=== PATIENT | female | born 1975 | race Caucasian/White ===

== ENCOUNTER → 2016-07-30 | Outpatient (REF) | payer OTHER | LOC: M SFHCCAPE 11:56 | PROVIDERS: ATTEND Physician Assistant | DX: J01.90 Acute sinusitis, unspecified (principal) ==

== ENCOUNTER → 2016-08-27 | Outpatient (REF) | payer OTHER ==
[2016-08-27 18:53] LABS: VITAMIN B12 LEVEL 714 PG/ML (247-911)
[2016-08-27 18:55] LABS: ALBUMIN 3.8 GM/DL (3.2-5.2); ALBUMIN/GLOBULIN RATIO 1.15 (1.00-1.93); ALKALINE PHOSPHATASE 55 U/L (45-117); ALT/SGPT 21 U/L (12-78); ANION GAP 8 MEQ/L (8-16); AST/SGOT 16 U/L (15-37); BILIRUBIN,TOTAL 0.7 MG/DL (0.2-1.0); BLOOD UREA NITROGEN 13 MG/DL (7-18); CALCIUM LEVEL 8.6 MG/DL (8.5-10.1); CARBON DIOXIDE LEVEL 30 MEQ/L (21-32); CHLORIDE LEVEL 104 MEQ/L (98-107); CREATININE FOR GFR 0.66 MG/DL (0.55-1.02); FREE T4 1.06 NG/DL (0.76-1.46); GLOMERULAR FILTRATION RATE > 60.0 (>60); GLUCOSE, FASTING 58 MG/DL (70-105); POTASSIUM SERUM 3.7 MEQ/L (3.5-5.1); SODIUM LEVEL 142 MEQ/L (136-145); TOTAL PROTEIN 7.1 GM/DL (6.4-8.2)
[2016-08-27 19:44] LABS: BASO % 0.8 % (0.0-1.0); EOS # 0.2 K/mm3 (0.0-0.50); EOS % 4.4 % (0.0-3.0); LARGE UNSTAINED CELL # 0.1 K/mm3 (0.0-0.4); LARGE UNSTAINED CELL % 1.7 % (0.0-4.0); LYMPH # 1.4 K/mm3 (1.5-4.5); LYMPH % 27.9 % (24.0-44.0); MEAN CORPUSCULAR HEMOGLOBIN 30.3 pg (27.0-33.0); MEAN CORPUSCULAR HGB CONC 33.7 g/dl (32.0-36.5); MEAN CORPUSCULAR VOLUME 89.7 fl (80.0-96.0); MONO # 0.4 K/mm3 (0.0-0.8); MONO % 8.9 % (0.0-5.0); NEUTROPHILS # 2.6 K/mm3 (1.8-7.7); NEUTROPHILS % 56.3 % (36.0-66.0); PLATELET COUNT, AUTOMATED 186 k/mm3 (150-450); RED CELL DISTRIBUTION WIDTH 12.9 % (11.5-14.5); WHITE BLOOD COUNT 4.6 K/mm3 (4.0-10.0)
[2016-08-27 21:41] LABS: ERYTHROCYTE SEDIMENTATION RATE 8 mm/hr (0-20)
[2016-08-30 00:08] LABS: Lyme Disease IgG/IgM Antibodie <0.91 ISR (0.00-0.90); Lyme Disease IgM Ab Quantitati <0.80 index (0.00-0.79)
== END ==
LOC: M SFHCCAPE 13:20
PROVIDERS: ATTEND Physician Assistant
DX: M25.50 Pain in unspecified joint (principal)

== ENCOUNTER → 2019-06-04 | Outpatient (CLI) | payer OTHER | LOC: M LABSMTC 10:05 | PROVIDERS: ATTEND Family Medicine | DX: Z11.59 Encounter for screening for other viral diseases (principal); Z20.828 Contact with and (suspected) exposure to other viral communicable diseases ==

== ENCOUNTER → 2020-01-09 | Outpatient (CLI) | payer OTHER ==
[~2020-01-09] MED LIST: BACL10TA2 PO; BUTA-198 PO; FAMO20TA PO; HYDR200T3 PO; ONDA4TAB6 PO; SUMA6INJ16 SC; VENL150C43 PO; VENL37.598 PO; ZOLM5TAB20 PO; marijuana SL
== END ==
LOC: M LABSMTC 08:51
PROVIDERS: ATTEND Anesthesiology
DX: Z01.812 Encounter for preprocedural laboratory examination (principal); Z20.828 Contact with and (suspected) exposure to other viral communicable diseases

== ENCOUNTER → 2020-01-11 | Outpatient (REF) | payer OTHER ==
[2020-01-11 18:12] LABS: BASO # 0.1 10^3/uL (0.0-0.2); BASO % 1.1 % (0.0-1.0); EOS # 0.2 10^3/uL (0.0-0.5); EOS % 3.9 % (0.0-3.0); HEMATOCRIT 36.3 % (36.0-47.0); HEMOGLOBIN 10.8 g/dl (12.0-15.5); LYMPH # 1.1 10^3/uL (1.5-5.0); LYMPH % 20.1 % (24.0-44.0); MEAN CORPUSCULAR HEMOGLOBIN 23.3 pg (27.0-33.0); MEAN CORPUSCULAR HGB CONC 29.8 g/dl (32.0-36.5); MEAN CORPUSCULAR VOLUME 78.4 fl (80.0-96.0); MONO # 0.8 10^3/uL (0.0-0.8); MONO % 14.8 % (0.0-5.0); NEUTROPHILS # 3.2 10^3/uL (1.5-8.5); NEUTROPHILS % 59.3 % (36.0-66.0); PLATELET COUNT, AUTOMATED 254 10^3/uL (150-450); RED BLOOD COUNT 4.63 10^6/uL (4.00-5.40); WHITE BLOOD COUNT 5.3 10^3/uL (4.0-10.0)
[2020-01-11 18:51] LABS: ALBUMIN 3.7 GM/DL (3.2-5.2); ALT/SGPT 14 U/L (12-78); BILIRUBIN,TOTAL 0.5 MG/DL (0.2-1.0); BLOOD UREA NITROGEN 15 MG/DL (7-18); CALCIUM LEVEL 8.9 MG/DL (8.5-10.1); CARBON DIOXIDE LEVEL 30 MEQ/L (21-32); CHLORIDE LEVEL 106 MEQ/L (98-107); CREATININE FOR GFR 0.72 MG/DL (0.55-1.30); FREE T4 0.97 NG/DL (0.76-1.46); GLOMERULAR FILTRATION RATE > 60.0 (>58); GLUCOSE, FASTING 69 MG/DL (70-100); POTASSIUM SERUM 4.2 MEQ/L (3.5-5.1); SODIUM LEVEL 138 MEQ/L (136-145); TOTAL PROTEIN 6.8 GM/DL (6.4-8.2)
== END ==
LOC: M SFHCCLAY 09:51
PROVIDERS: ATTEND Nurse Practitioner Family
DX: M32.9 Systemic lupus erythematosus, unspecified (principal); M79.7 Fibromyalgia; R00.0 Tachycardia, unspecified; C53.9 Malignant neoplasm of cervix uteri, unspecified

== ENCOUNTER 2020-01-14 07:04 | Day surgery (SDC) | payer OTHER ==
[2020-01-14] VITALS (8 sets, daily range): BP systolic 124–155; BP diastolic 77–93
[~2020-01-14] VITALS: Ht 160 cm; Wt 80.7 kg
[~2020-01-14 07:04] MED LIST changes: +LR 1,000 ML IV ONE
[2020-01-14] MEDS ORDERED: ceFAZolin SOD 2 GM in IV 1 EA IV ONE (07:45)
[2020-01-14 07:49] LABS: HEMATOCRIT 36.6 % (36.0-47.0); HEMOGLOBIN 11.2 g/dl (12.0-15.5); MEAN CORPUSCULAR HEMOGLOBIN 23.7 pg (27.0-33.0); MEAN CORPUSCULAR HGB CONC 30.6 g/dl (32.0-36.5); MEAN CORPUSCULAR VOLUME 77.4 fl (80.0-96.0); PLATELET COUNT, AUTOMATED 271 10^3/uL (150-450); RED BLOOD COUNT 4.73 10^6/uL (4.00-5.40); WHITE BLOOD COUNT 6.8 10^3/uL (4.0-10.0)
[2020-01-14] MEDS ORDERED: MIDAZOLAM INJ 2MG/2ML VIAL (J2250 PER 1MG) As Ordered ONE (08:43)
[2020-01-14] MEDS ORDERED: ONDANSETRON 4MG/2ML VIAL As Ordered ONE (08:44)
[2020-01-14] MEDS ORDERED: fentaNYL 100 MCG/2 ML INJECTION (J3010) As Ordered ONE (08:44)
[2020-01-14] MEDS ORDERED: LIDOCAINE 2% 100MG/5ML SDV (FOR ANES.) As Ordered ONE (08:44)
[2020-01-14] MEDS ORDERED: dexameTHASONE 4 MG/ML 1ML VIAL (J1100 PER 1MG) As Ordered ONE (08:44)
[2020-01-14] MEDS ORDERED: ROCURONIUM BROMIDE 50 MG/5 ML VIAL As Ordered ONE ×2 (08:44→09:43)
[2020-01-14] MEDS ORDERED: propofoL 200 MG/20 ML VIAL As Ordered ONE ×2 (08:44→08:45)
[2020-01-14] MEDS: **UNRESOLVED NON-FORMULARY MED ORDER XX SCH (09:00)
[2020-01-14] MEDS: HYDROXYCHLOROQUINE 200 MG TAB PO SCH (09:00)
[2020-01-14] MEDS ORDERED: HYDROmorphone HCL 2 MG/ML 1ML VIAL (J1170) As Ordered ONE (09:38)
[2020-01-14] MEDS ORDERED: PHENYLephrine HCL 500 MCG/5 ML (100MCG/ML) SYRINGE (J2370) As Ordered ONE (09:44)
[2020-01-14] MEDS ORDERED: SUGAMMADEX SODIUM 500 MG/5 ML VIAL (BRIDION) As Ordered ONE (09:54)
[2020-01-14] MEDS ORDERED: KETOROLAC 60MG 2ML VIAL As Ordered ONE (09:55)
[2020-01-14] MEDS ORDERED: MORPHINE 1MG/ML IN 0.9% NACL 100ML IV BAG As Ordered ONE (11:42)
--- NOTE | 2020-01-14 11:44 | REP ---
INDICATION: FOR FORIEGN BODY. COMPARISON: Comparison pelvic radiograph is from December 13, 2014.. TECHNIQUE: Two portable supine views the abdomen and pelvis. FINDINGS: Bowel gas pattern is normal. No opaque foreign body is appreciated. Flank stripes are intact. No mass, organomegaly or pathologic calcification is seen. IMPRESSION: Negative portable KUB. No opaque foreign body noted. <Electronically signed by Gadiel Garner > 01/14/20 [id number]
[2020-01-14] MEDS ORDERED: PERCOCET 5MG/325MG TAB PO PRN (12:15)
[2020-01-14] MEDS ORDERED: LR 1,000 ML IV SCH (12:15)
[2020-01-14] MEDS ORDERED: fentaNYL 100 MCG/2 ML INJECTION (J3010) IV PRN (12:15)
[2020-01-14] MEDS ORDERED: ONDANSETRON 4MG/2ML VIAL IV PRN (12:15)
[2020-01-14] MEDS ORDERED: MORPHINE 1MG/ML IN 0.9% NACL 100ML IV BAG IV PRN (12:30)
[2020-01-14] MEDS ORDERED: diphenhydrAMINE 50MG/ML VIAL (J1200) IV PRN (12:30)
[2020-01-14] MEDS ORDERED: NALBUPHINE HCL 10 MG/ML AMP (J2300) IV PRN (12:30)
[2020-01-14] MEDS ORDERED: EPIDURAL/PCA KEYS XX PRN (12:30)
[2020-01-14] MEDS ORDERED: NALOXONE INJ 0.4MG/1ML VIAL (J2310 PER 1MG) IV PRN (12:30)
[2020-01-14] MEDS ORDERED: METOCLOPRAMIDE INJ 10MG/2ML VIAL (J2765 PER 1) IV PRN (12:30)
[2020-01-14] MEDS ORDERED: IBUPROFEN 600MG TAB PO PRN (12:30)
[2020-01-14] MEDS ORDERED: ALBUTEROL 90 MCG/ACT 8GM HFA INHALER INH PRN (12:45)
[2020-01-14] MEDS: LR 1,000 ML IV SCH ×2 (14:25→18:53)
--- NOTE | 2020-01-14 15:21 | RO ---
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 SURGEON: Sara Jauregui MD [employer] SUPERVISOR: None. ANESTHESIA: General endotracheal anesthesia. PROCEDURE: Laparoscopic-assisted vaginal hysterectomy with bilateral salpingo-oophorectomy. BRIEF DESCRIPTION OF PROCEDURE/FINDINGS: Marylin was brought to the operating room where sufficient general endotracheal anesthesia was induced. She was prepped, draped and positioned in usual sterile fashion with weighted speculum placed, bladder emptied and uterine manipulator placed, then weighted removed and Rangel with ability of back-fill was left in place. We then turned our attention to the abdomen. Transverse semilunar incision was made below the umbilicus. Sharp and blunt dissection were continued through subcutaneous tissues to the level of the rectus fascia with transverse incision made with scalpel and the fascia secured with #0 Vicryl retention sutures. The peritoneum then entered under direct visualization in open laparoscopic technique. The Yenifer cannula was then placed and secured with #0 Vicryl retention sutures and CO2 insufflation was then begun. After adequate CO2 insufflation the peritoneal cavity was visualized. There were normal shiny surfaces throughout, no excrescent, ascites or exudate. There are minor filmy adhesions consistent with the patient's history but no significant lesions. There is a small anterior fundal fibroid. The ovaries were normal in appearance. We were with Trendelenburg readily able to isolate the infundibulopelvics. We then used the operative port and Yenifer for a #45 Enseal to cauterize and transect the infundibulopelvics starting on the left and right, we took care to avoid injury to the bowel or the ureters. We worked our way through the mesentery to the round ligament and then into the anterior aspect of the broad ligament from above, freeing the ovary and fallopian tube and superior aspect of the uterus. When we completed this dissection we went ahead and moved to the vaginal portion of the case. Working vaginally with the uterine manipulator removed, single tooth tenacula were placed on the anterior and posterior aspects of the cervix. Circumferential incision was made around the base of the cervix and the cardinal ligaments were isolated, clamped with De Gray clamps which were used throughout this portion of the case, transected and then sutured with #0 Vicryl suture which was also used throughout this portion of the case. We then entered posteriorly, clamped, cut and ligated the uterosacrals which were secured to the cuff for later securing with the cuff closure and then dissected anteriorly to displace the bladder so that we could work our way up the lateral aspect of the uterus, carefully clamping, transecting and cutting the uterine vascular supply until we reached the level of the dissection that we had done from above and then the uterus with the attached ovaries and tubes removed. Pedicles were carefully examined, good hemostasis assured. The vaginal cuff was examined as well; there was a little oozing at the angle on the right side. We did oversew both angles and secured the uterosacrals and then closed the cuff with running locking stitch with good approximation and hemostasis achieved. We then turned our attention to closure of the umbilical wound. The Yenifer was removed. The #0 Vicryl retention sutures were used to close the fascia at the umbilicus and then the skin was closed with 3-0 Vicryl in subcuticular stitch with good approximation and hemostasis achieved in both layers. Dry, sterile dressing was then applied and procedure ended. Estimated blood loss for the procedure was about 100 mL. Fluid replacement was Crystalloid. Complications: None. I will note that they had two extra instruments at the end of the count. We do have a trainee today so of course an x-ray was done and there were no retained instruments, etc. PATIENT CONDITION AND DISPOSITION: The patient tolerated the procedure well and was recovering in the recovery room in good condition.
[2020-01-14] MEDS ORDERED: ZOLMitriptan TABLET 2.5MG PO PRN (16:45)
[2020-01-14] MEDS: ONDANSETRON 4 MG ORAL DISINTEGRATING TAB PO PRN (16:53)
[2020-01-14] MEDS: FAMOTIDINE 20 MG TAB PO SCH (21:03)
[2020-01-15] MEDS: LR 1,000 ML IV SCH (01:44)
[2020-01-15 02:00] VITALS: BP 150/87
[2020-01-15 06:00] VITALS: BP 123/78
[2020-01-15] MEDS ORDERED: NORCO, ANEXSIA 5/325MG TABLET (HYDROcodone/ACETAMINOPHEN) PO PRN (06:00)
[2020-01-15] MEDS: FAMOTIDINE 20 MG TAB PO SCH (08:11)
[2020-01-15] MEDS: ONDANSETRON 4 MG ORAL DISINTEGRATING TAB PO PRN (08:11)
[2020-01-15] MEDS: HYDROXYCHLOROQUINE 200 MG TAB PO SCH ×2 (08:11→08:14)
[2020-01-15] MEDS: **UNRESOLVED NON-FORMULARY MED ORDER XX SCH (08:12)
[2020-01-15] MEDS ORDERED: VENLAFAXINE **XR** 75MG CAPSULE PO SCH (09:00)
[2020-01-15 10:00] VITALS: BP 138/84
== END 2020-01-15 12:46 | disposition home or self-care (01) ==
LOC: M SDC 07:04 → M MSPAV 12:39 → M SDC 01-15 12:46
PROVIDERS: ATTEND Obstetrics & Gynecology
DX: D06.9 Carcinoma in situ of cervix, unspecified (principal); N94.10 Unspecified dyspareunia; N93.9 Abnormal uterine and vaginal bleeding, unspecified; M32.9 Systemic lupus erythematosus, unspecified; K21.9 Gastro-esophageal reflux disease without esophagitis; Z79.899 Other long term (current) drug therapy; G43.909 Migraine, unspecified, not intractable, without status migrainosus; Z87.891 Personal history of nicotine dependence; Z88.0 Allergy status to penicillin; Z91.018 Allergy to other foods; Z88.8 Allergy status to other drugs, medicaments and biological substances
CPT/HCPCS: 36415; 58571; 74018; 81025; 85027; 86850; 86900; 86901; 88307; 88341; 88342; 96360; 96361; J0690; J1100; J1170; J1885; J2250; J2370; J2405; J3010; Q0162

== ENCOUNTER → 2020-07-04 | Outpatient (REF) | payer OTHER ==
[~2020-07-04] MED LIST changes: -LR 1,000 ML IV ONE
[2020-07-04 17:28] LABS: BASO % 0.8 % (0.0-1.0); EOS # 0.2 10^3/uL (0.0-0.5); EOS % 4.7 % (0.0-3.0); HEMATOCRIT 41.1 % (36.0-47.0); HEMOGLOBIN 13.1 g/dl (12.0-15.5); LYMPH # 1.5 10^3/uL (1.5-5.0); LYMPH % 28.8 % (24.0-44.0); MEAN CORPUSCULAR HEMOGLOBIN 26.5 pg (27.0-33.0); MEAN CORPUSCULAR HGB CONC 31.9 g/dl (32.0-36.5); MEAN CORPUSCULAR VOLUME 83.2 fl (80.0-96.0); MONO # 0.7 10^3/uL (0.0-0.8); MONO % 14.1 % (2.0-8.0); NEUTROPHILS # 2.6 10^3/uL (1.5-8.5); NEUTROPHILS % 51.2 % (36.0-66.0); PLATELET COUNT, AUTOMATED 201 10^3/uL (150-450); RED BLOOD COUNT 4.94 10^6/uL (4.00-5.40); WHITE BLOOD COUNT 5.1 10^3/uL (4.0-10.0)
[2020-07-04 17:38] LABS: ALBUMIN 3.7 GM/DL (3.2-5.2); ALT/SGPT 18 U/L (12-78); BILIRUBIN,TOTAL 0.6 MG/DL (0.2-1.0); BLOOD UREA NITROGEN 11 MG/DL (7-18); CALCIUM LEVEL 8.9 MG/DL (8.5-10.1); CARBON DIOXIDE LEVEL 33 MEQ/L (21-32); CHLORIDE LEVEL 105 MEQ/L (98-107); CHOLESTEROL LEVEL 152 MG/DL (<200); CHOLESTEROL RISK RATIO 1.974 (<5); CREATININE FOR GFR 0.77 MG/DL (0.55-1.30); GLOMERULAR FILTRATION RATE > 60.0 (>58); GLUCOSE, FASTING 77 MG/DL (70-100); HDL CHOLESTEROL 77 MG/DL (>40); LDL CHOLESTEROL 58 MG/DL (<100); NON-HDL-C 75 MG/DL; POTASSIUM SERUM 3.8 MEQ/L (3.5-5.1); SODIUM LEVEL 142 MEQ/L (136-145); TOTAL 25(OH) VITAMIN D 35.2 NG/ML (30.0-100.0); TOTAL PROTEIN 6.9 GM/DL (6.4-8.2); TRIGLYCERIDES LEVEL 83 MG/DL (<150)
== END ==
LOC: M SFHCCAPE 07:12
PROVIDERS: ATTEND Physician Assistant
DX: M32.9 Systemic lupus erythematosus, unspecified (principal); Z13.6 Encounter for screening for cardiovascular disorders

== ENCOUNTER → 2020-07-25 | Outpatient (REF) | payer OTHER ==
[2020-07-25 19:16] LABS: FREE T4 0.92 NG/DL (0.76-1.46); THYROID STIMULATING HORMONE 4.01 uIU/ML (0.358-3.740)
== END ==
LOC: M SFHCCLAY 07:35
PROVIDERS: ATTEND Physician Assistant
DX: R79.89 Other specified abnormal findings of blood chemistry (principal)

== ENCOUNTER → 2020-08-09 | Outpatient (CLI) | payer OTHER ==
--- NOTE | 2020-08-09 11:02 | REP ---
INDICATION: ABN THYROID FUNCTION TEST, LYMPHADENOPATHY COMPARISON: None. TECHNIQUE: Bentley scale and color evaluation of the thyroid gland using the linear high frequency transducer. FINDINGS: The thyroid gland is normal in contour, shape, size, and echogenicity. Right thyroid lobe measures 4.6 x 1.7 x 1.5 cm and includes 4.4 x 5.5 x 4.5 mm hypoechoic nodule adjacent to the isthmus and 3.4 x 3.4 x 1.7 cm lower pole cyst. Isthmus measures 1.9 mm in width. Left thyroid lobe measures 4.0 x 1.2 x 1.6 cm without nodule or cyst. IMPRESSION: Small nonspecific right thyroid nodule and cyst. <Electronically signed by Mehul Tuttle > 08/09/20 [id number]
== END ==
LOC: M RAD 10:19
PROVIDERS: ATTEND Physician Assistant
DX: R94.6 Abnormal results of thyroid function studies (principal); R59.0 Localized enlarged lymph nodes

== ENCOUNTER → 2020-09-26 | Outpatient (REF) | payer OTHER ==
[2020-09-26 17:14] LABS: FREE T4 1.41 NG/DL (0.76-1.46); THYROID STIMULATING HORMONE 3.64 uIU/ML (0.358-3.740)
== END ==
LOC: M SFHCCAPE 07:46
PROVIDERS: ATTEND Physician Assistant
DX: E07.9 Disorder of thyroid, unspecified (principal)

== ENCOUNTER → 2021-05-22 | Outpatient (CLI) | payer OTHER ==
[~2021-05-22] MED LIST changes: -SUMA6INJ16 SC; +SUMA6INJ25 SC
[2021-05-22 12:45] LABS: BASO # 0.1 10^3/uL (0.0-0.2); EOS # 0.1 10^3/uL (0.0-0.5); EOS % 2.4 % (0.0-3.0); HEMOGLOBIN 14.1 g/dl (12.0-15.5); LYMPH # 1.3 10^3/uL (1.5-5.0); LYMPH % 25.7 % (24.0-44.0); MEAN CORPUSCULAR HEMOGLOBIN 29.8 pg (27.0-33.0); MEAN CORPUSCULAR HGB CONC 33.6 g/dl (32.0-36.5); MEAN CORPUSCULAR VOLUME 88.8 fl (80.0-96.0); MONO # 0.5 10^3/uL (0.0-0.8); NEUTROPHILS # 2.9 10^3/uL (1.5-8.5); NEUTROPHILS % 59.1 % (36.0-66.0); PLATELET COUNT, AUTOMATED 218 10^3/uL (150-450); RED BLOOD COUNT 4.73 10^6/uL (4.00-5.40); WHITE BLOOD COUNT 4.9 10^3/uL (4.0-10.0)
[2021-05-22 13:36] LABS: ALBUMIN 3.8 GM/DL (3.2-5.2); ALT/SGPT 21 U/L (12-78); BILIRUBIN,TOTAL 0.7 MG/DL (0.2-1.0); BLOOD UREA NITROGEN 11 MG/DL (7-18); CALCIUM LEVEL 8.9 MG/DL (8.5-10.1); CARBON DIOXIDE LEVEL 29 MEQ/L (21-32); CHLORIDE LEVEL 104 MEQ/L (98-107); CHOLESTEROL LEVEL 163 MG/DL (<200); CHOLESTEROL RISK RATIO 1.852 (<5); FREE T4 1.06 NG/DL (0.76-1.46); GLOMERULAR FILTRATION RATE > 60.0 (>58); GLUCOSE, FASTING 86 MG/DL (70-100); HDL CHOLESTEROL 88 MG/DL (>40); LDL CHOLESTEROL 63 MG/DL (<100); NON-HDL-C 75 MG/DL; POTASSIUM SERUM 3.9 MEQ/L (3.5-5.1); SODIUM LEVEL 140 MEQ/L (136-145); TOTAL PROTEIN 6.7 GM/DL (6.4-8.2); TRIGLYCERIDES LEVEL 62 MG/DL (<150)
[2021-05-22 13:59] LABS: HEPATITIS C VIRUS ABY INDEX 0.1 INDEX (<0.8); HIV 1&2 SCREEN CENTAUR NEGATIVE (NEGATIVE)
== END ==
LOC: M WUC 10:13
PROVIDERS: ATTEND Physician Assistant
DX: Z11.3 Encounter for screening for infections with a predominantly sexual mode of transmission (principal); E07.9 Disorder of thyroid, unspecified

== ENCOUNTER → 2021-09-05 | Outpatient (CLI) | payer OTHER ==
[2021-09-05 12:30] LABS: BASO # 0.1 10^3/uL (0.0-0.2); BASO % 0.8 % (0.0-1.0); EOS # 0.1 10^3/uL (0.0-0.5); EOS % 1.7 % (0.0-3.0); HEMATOCRIT 44.7 % (36.0-47.0); HEMOGLOBIN 14.8 g/dl (12.0-15.5); LYMPH # 1.3 10^3/uL (1.5-5.0); LYMPH % 20.7 % (24.0-44.0); MEAN CORPUSCULAR HEMOGLOBIN 29.7 pg (27.0-33.0); MEAN CORPUSCULAR HGB CONC 33.1 g/dl (32.0-36.5); MEAN CORPUSCULAR VOLUME 89.8 fl (80.0-96.0); MONO # 0.6 10^3/uL (0.0-0.8); MONO % 10.1 % (2.0-8.0); NEUTROPHILS % 65.7 % (36.0-66.0); PLATELET COUNT, AUTOMATED 232 10^3/uL (150-450); RED BLOOD COUNT 4.98 10^6/uL (4.00-5.40)
[2021-09-05 12:57] LABS: ERYTHROCYTE SEDIMENTATION RATE 7 mm/hr (0-20)
[2021-09-05 13:11] LABS: ALBUMIN 3.9 GM/DL (3.2-5.2); ALT/SGPT 22 U/L (12-78); BILIRUBIN,TOTAL 0.7 MG/DL (0.2-1.0); BLOOD UREA NITROGEN 15 MG/DL (7-18); CALCIUM LEVEL 9.3 MG/DL (8.5-10.1); CARBON DIOXIDE LEVEL 31 MEQ/L (21-32); CHLORIDE LEVEL 103 MEQ/L (98-107); CREATININE FOR GFR 0.79 MG/DL (0.55-1.30); GLOMERULAR FILTRATION RATE > 60.0 (>58); GLUCOSE, FASTING 128 MG/DL (70-100); POTASSIUM SERUM 3.9 MEQ/L (3.5-5.1); RHEUMATOID FACTOR QUANT < 10.0 IU/ML (<15.0); SODIUM LEVEL 137 MEQ/L (136-145); TOTAL PROTEIN 7.1 GM/DL (6.4-8.2)
[2021-09-06 11:09] LABS: ANTINUCLEAR ANTIBODIES DIRECT Negative (Negative)
== END ==
LOC: M WUC 08:52
PROVIDERS: ATTEND Psychiatry & Neurology Neurology
DX: R51.9 Headache, unspecified (principal)

== ENCOUNTER → 2021-09-05 | Outpatient (CLI) | payer OTHER ==
[2021-09-05 13:07] LABS: FREE T4 1.1 NG/DL (0.76-1.46); THYROID STIMULATING HORMONE 2.71 uIU/ML (0.358-3.740)
[2021-09-05 13:48] LABS: THYROID PEROXIDASE ANTIBODY 28.5 U/ML (<60.0)
== END ==
LOC: M WUC 08:50
PROVIDERS: ATTEND Nurse Practitioner Family
DX: E03.9 Hypothyroidism, unspecified (principal)

== ENCOUNTER 2021-09-30 19:03 | Inpatient (IN) | payer OTHER ==
[~2021-09-30] VITALS: Ht 160 cm; Wt 80.0 kg
[~2021-09-30 19:03] MED LIST changes: -ONDA4TAB6 PO; +ONDA4TAB6 SL
[2021-09-30] MEDS ORDERED: NS 1,000 ML IV ONE (19:50)
[2021-09-30 19:52] LABS: BASO # 0.1 10^3/uL (0.0-0.2); BASO % 1.1 % (0.0-1.0); EOS # 0.1 10^3/uL (0.0-0.5); EOS % 1.2 % (0.0-3.0); HEMATOCRIT 45.9 % (36.0-47.0); HEMOGLOBIN 15.3 g/dl (12.0-15.5); LYMPH # 1.3 10^3/uL (1.5-5.0); LYMPH % 20.1 % (24.0-44.0); MEAN CORPUSCULAR HEMOGLOBIN 29.8 pg (27.0-33.0); MEAN CORPUSCULAR HGB CONC 33.3 g/dl (32.0-36.5); MEAN CORPUSCULAR VOLUME 89.5 fl (80.0-96.0); MONO # 0.7 10^3/uL (0.0-0.8); MONO % 10.7 % (2.0-8.0); NEUTROPHILS # 4.3 10^3/uL (1.5-8.5); NEUTROPHILS % 65.5 % (36.0-66.0); PLATELET COUNT, AUTOMATED 223 10^3/uL (150-450); RED BLOOD COUNT 5.13 10^6/uL (4.00-5.40); WHITE BLOOD COUNT 6.6 10^3/uL (4.0-10.0)
[2021-09-30 20:40] LABS: ALBUMIN 3.9 GM/DL (3.2-5.2); ALT/SGPT 24 U/L (12-78); BILIRUBIN,DIRECT 0.1 MG/DL (0.0-0.2); BILIRUBIN,TOTAL 0.4 MG/DL (0.2-1.0); BLOOD UREA NITROGEN 12 MG/DL (7-18); CARBON DIOXIDE LEVEL 29 MEQ/L (21-32); CHLORIDE LEVEL 107 MEQ/L (98-107); CREATININE FOR GFR 0.81 MG/DL (0.55-1.30); FREE T4 1.05 NG/DL (0.76-1.46); GLOMERULAR FILTRATION RATE > 60.0 (>58); GLUCOSE, FASTING 95 MG/DL (70-100); MAGNESIUM LEVEL 2.2 MG/DL (1.8-2.4); POTASSIUM SERUM 3.9 MEQ/L (3.5-5.1); SODIUM LEVEL 141 MEQ/L (136-145); TOTAL PROTEIN 7.4 GM/DL (6.4-8.2)
[2021-09-30 20:43] LABS: MB/CK RELATIVE INDEX 2.78 (< OR =4)
[2021-09-30] MEDS ORDERED: NITROGLYCERIN 0.4 MG SUBL TABLET SL STA (20:56)
[2021-09-30] MEDS ORDERED: ISOVUE-370 76% 100ML VIAL As Ordered ONE (21:32)
[2021-09-30 21:43] LABS: NT-PRO BNP 68 PG/ML (<125)
[2021-09-30 21:46] LABS: CK-MB VALUE MASS 2.8 NG/ML (<3.6); MB/CK RELATIVE INDEX 4.06 (< OR =4)
[2021-09-30 23:22] LABS: CK-MB VALUE MASS 3.8 NG/ML (<3.6); MB/CK RELATIVE INDEX 5.85 (< OR =4)
[2021-09-30] MEDS ORDERED: METOPROLOL TART 25 MG TABLET PO STA (23:38)
[2021-09-30] MEDS ORDERED: ATORVASTATIN 20 MG TAB PO STA (23:38)
[2021-09-30] MEDS ORDERED: ENOXAPARIN 80MG/0.8ML SYRINGE (J1650 PER 10MG) SC STA (23:38)
[2021-10-01] VITALS (8 sets, daily range): BP systolic 122–140; BP diastolic 66–95; PULSE 80
[2021-10-01] MEDS ORDERED: BENL200I INJ (00:36)
[2021-10-01] MEDS ORDERED: FREM225A PO (00:36)
[2021-10-01] MEDS ORDERED: HOME MED LIST COMPLETE! XX SCH (00:40)
[2021-10-01] MEDS ORDERED: MOM 30ML SUSPENSION UDC PO PRN (00:40)
[2021-10-01] MEDS ORDERED: ACETAMINOPHEN TAB 650MG DOSE (2X325MG) PO PRN (00:40)
[2021-10-01] MEDS ORDERED: FAMOTIDINE 20 MG TAB PO PRN (00:45)
[2021-10-01] MEDS ORDERED: POTASSIUM CHLORIDE 10MEQ SR TABLET PO ONE (00:45)
[2021-10-01 06:57] LABS: HEMATOCRIT 39.3 % (36.0-47.0); HEMOGLOBIN 13.4 g/dl (12.0-15.5); MEAN CORPUSCULAR HEMOGLOBIN 30.7 pg (27.0-33.0); MEAN CORPUSCULAR HGB CONC 34.1 g/dl (32.0-36.5); MEAN CORPUSCULAR VOLUME 89.9 fl (80.0-96.0); PLATELET COUNT, AUTOMATED 216 10^3/uL (150-450); RED BLOOD COUNT 4.37 10^6/uL (4.00-5.40); WHITE BLOOD COUNT 5.7 10^3/uL (4.0-10.0)
[2021-10-01 07:23] LABS: ALBUMIN 3.5 GM/DL (3.2-5.2); ALT/SGPT 22 U/L (12-78); BILIRUBIN,TOTAL 0.9 MG/DL (0.2-1.0); BLOOD UREA NITROGEN 8 MG/DL (7-18); CARBON DIOXIDE LEVEL 27 MEQ/L (21-32); CHLORIDE LEVEL 109 MEQ/L (98-107); CREATININE FOR GFR 0.68 MG/DL (0.55-1.30); GLOMERULAR FILTRATION RATE > 60.0 (>58); GLUCOSE, FASTING 91 MG/DL (70-100); POTASSIUM SERUM 3.6 MEQ/L (3.5-5.1); SODIUM LEVEL 140 MEQ/L (136-145); TOTAL PROTEIN 6.2 GM/DL (6.4-8.2)
[2021-10-01] MEDS: METOPROLOL TART 25 MG TABLET PO SCH ×2 (09:13→20:28)
[2021-10-01] MEDS: ASPIRIN 81MG ENTERIC TABLET PO SCH (09:14)
[2021-10-01] MEDS ORDERED: ENOXAPARIN 80MG/0.8ML SYRINGE (J1650 PER 10MG) SC SCH (12:00)
[2021-10-01] MEDS: VENLAFAXINE **XR** 75MG CAPSULE PO SCH (15:12)
[2021-10-01] MEDS: ATORVASTATIN 20 MG TAB PO SCH (15:12)
[2021-10-02] VITALS: BP 122/76
[2021-10-02 00:52] VITALS: PULSE 82
[2021-10-02 04:00] VITALS: BP 123/59; PULSE 82
[2021-10-02 06:37] LABS: BLOOD UREA NITROGEN 9 MG/DL (7-18); CARBON DIOXIDE LEVEL 26 MEQ/L (21-32); CHLORIDE LEVEL 110 MEQ/L (98-107); GLOMERULAR FILTRATION RATE > 60.0 (>58); GLUCOSE, FASTING 97 MG/DL (70-100); POTASSIUM SERUM 3.7 MEQ/L (3.5-5.1); SODIUM LEVEL 141 MEQ/L (136-145)
[2021-10-02 08:00] VITALS: BP 124/77; PULSE 87
[2021-10-02] MEDS ORDERED: ENOXAPARIN 40MG/0.4ML SYRINGE (J1650 PER 10MG) SC SCH (09:00)
[2021-10-02] MEDS: VENLAFAXINE **XR** 75MG CAPSULE PO SCH (09:07)
[2021-10-02] MEDS: METOPROLOL TART 25 MG TABLET PO SCH (09:07)
[2021-10-02] MEDS: ATORVASTATIN 20 MG TAB PO SCH (09:07)
[2021-10-02] MEDS: ASPIRIN 81MG ENTERIC TABLET PO SCH (09:07)
[2021-10-02 12:00] VITALS: BP 130/65
[2021-10-02] MEDS ORDERED: METO1TAB87 PO (12:32)
[2021-10-02] MEDS ORDERED: ATOR1TAB21 PO (12:32)
[2021-10-02] MEDS ORDERED: ASPI-551 PO (12:32)
[2021-10-02] MEDS ORDERED: ATOR40TA75 PO (14:20)
== END 2021-10-02 15:25 | disposition home or self-care (01) | DRG 201 ==
LOC: EDBD 19:03 → M ED 19:03 → M ED INP 10-01 → M PCU 10-01 01:14
PROVIDERS: ADMIT Family Medicine; ATTEND Internal Medicine
DX: I47.1 Supraventricular tachycardia (principal); I24.8 Other forms of acute ischemic heart disease; M32.9 Systemic lupus erythematosus, unspecified; F41.9 Anxiety disorder, unspecified; G43.909 Migraine, unspecified, not intractable, without status migrainosus; Z79.82 Long term (current) use of aspirin; Z79.899 Other long term (current) drug therapy; Z88.0 Allergy status to penicillin; Z91.018 Allergy to other foods; Z88.8 Allergy status to other drugs, medicaments and biological substances; Z85.41 Personal history of malignant neoplasm of cervix uteri; Z85.42 Personal history of malignant neoplasm of other parts of uterus

== ENCOUNTER → 2022-03-18 | Outpatient (CLI) | payer OTHER ==
[~2022-03-18] MED LIST changes: +ASPI-551 PO; +ATOR1TAB21 PO; +ATOR40TA75 PO; +BENL200I INJ; +CVS1CAP2 PO; +FREM225A PO; +METO1TAB87 PO; +METO50TA7 PO; +WOMETAB PO
== END ==
LOC: M LABSMTC 10:04
PROVIDERS: ATTEND Anesthesiology
DX: Z01.812 Encounter for preprocedural laboratory examination (principal); Z20.822 Contact with and (suspected) exposure to COVID-19

== ENCOUNTER → 2022-03-19 | Outpatient (CLI) | payer OTHER ==
[~2022-03-19] MED LIST changes: +PROHANCE 279.3MG/ML 15ML VIAL As Ordered ONE; +PROHANCE 279.3MG/ML 5ML VIAL As Ordered ONE
== END ==
LOC: M RAD 10:56
PROVIDERS: ATTEND Internal Medicine Gastroenterology
DX: R93.89 Abnormal findings on diagnostic imaging of other specified body structures (principal)
CPT/HCPCS: 74183; A9576

== ENCOUNTER 2022-03-20 10:56 | Day surgery (SDC) | payer OTHER ==
[~2022-03-20] VITALS: Ht 160 cm; Wt 87.5 kg
[~2022-03-20 10:56] MED LIST changes: +NS 1,000 ML IV ONE; -PROHANCE 279.3MG/ML 15ML VIAL As Ordered ONE; -PROHANCE 279.3MG/ML 5ML VIAL As Ordered ONE
[2022-03-20] MEDS ORDERED: LIDOCAINE 2% 100MG/5ML SDV (FOR ANES.) As Ordered ONE (12:57)
[2022-03-20] MEDS ORDERED: propofoL 200 MG/20 ML VIAL As Ordered ONE (12:57)
[2022-03-20 13:45] VITALS: BP 142/86
== END 2022-03-20 13:45 | disposition home or self-care (01) ==
LOC: M OPP 10:56
PROVIDERS: ATTEND Internal Medicine Gastroenterology
DX: K21.00 Gastro-esophageal reflux disease with esophagitis, without bleeding (principal); K31.89 Other diseases of stomach and duodenum; K29.70 Gastritis, unspecified, without bleeding; R93.3 Abnormal findings on diagnostic imaging of other parts of digestive tract; I10 Essential (primary) hypertension; M79.7 Fibromyalgia; G43.909 Migraine, unspecified, not intractable, without status migrainosus; M32.9 Systemic lupus erythematosus, unspecified; M31.30 Wegener's granulomatosis without renal involvement; Z79.899 Other long term (current) drug therapy; Z88.0 Allergy status to penicillin; Z91.048 Other nonmedicinal substance allergy status

== ENCOUNTER → 2022-05-25 | Outpatient (CLI) | payer OTHER ==
[~2022-05-25] MED LIST changes: -NS 1,000 ML IV ONE
[2022-05-25 17:07] LABS: HEMATOCRIT 41.5 % (36.0-47.0); HEMOGLOBIN 13.3 g/dl (12.0-15.5); MEAN CORPUSCULAR HEMOGLOBIN 29.4 pg (27.0-33.0); MEAN CORPUSCULAR VOLUME 91.8 fl (80.0-96.0); PLATELET COUNT, AUTOMATED 247 10^3/uL (150-450); RED BLOOD COUNT 4.52 10^6/uL (4.00-5.40)
[2022-05-25 17:12] LABS: ALBUMIN 3.7 G/DL (3.2-5.2); ALKALINE PHOSPHATASE 92 U/L (46-116); ALT/SGPT 18 U/L (7.0-40); AST/SGOT 18 U/L (<34); BILIRUBIN,TOTAL 0.4 MG/DL (0.3-1.2); BLOOD UREA NITROGEN 13 MG/DL (9-23); CARBON DIOXIDE LEVEL 32 MMOL/L (20-31); CHLORIDE LEVEL 105 MMOL/L (98-107); GLOMERULAR FILTRATION RATE > 60.0 (>58); GLUCOSE, FASTING 100 MG/DL (60-100); POTASSIUM SERUM 3.8 MMOL/L (3.5-5.1); SODIUM LEVEL 143 MMOL/L (136-145); TOTAL PROTEIN 6.7 G/DL (5.7-8.2)
[2022-05-25 17:14] LABS: THYROID STIMULATING HORMONE 2.724 uIU/ML (0.55-4.78)
== END ==
LOC: M WUC 13:57
PROVIDERS: ATTEND Physician Assistant
DX: I47.1 Supraventricular tachycardia (principal)

== ENCOUNTER → 2022-06-25 | Outpatient (REF) | payer OTHER | LOC: M SFHCCAPE 11:59 | PROVIDERS: ATTEND Physician Assistant | DX: R59.1 Generalized enlarged lymph nodes (principal) ==

== ENCOUNTER → 2022-10-11 | Outpatient (CLI) | payer OTHER ==
[~2022-10-11] MED LIST changes: +GASTROGRAFIN SOLUTION 30ML As Ordered ONE; -HYDR200T3 PO; +HYDR200T46 PO; +ISOVUE-370 76% 100ML VIAL As Ordered ONE
== END ==
LOC: M RAD 08:13
PROVIDERS: ATTEND Nurse Practitioner Family
DX: K31.89 Other diseases of stomach and duodenum (principal)
CPT/HCPCS: 74160; Q9963; Q9967

== ENCOUNTER → 2023-04-05 | Outpatient (CLI) | payer OTHER | LOC: M RAD 08:07 | PROVIDERS: ATTEND Nurse Practitioner Family | DX: D21.4 Benign neoplasm of connective and other soft tissue of abdomen (principal); D21.5 Benign neoplasm of connective and other soft tissue of pelvis | CPT/HCPCS: 74177; Q9963; Q9967 ==

== ENCOUNTER → 2023-09-30 | Outpatient (REF) ==
[~2023-09-30] MED LIST changes: -GASTROGRAFIN SOLUTION 30ML As Ordered ONE; +ONDA-282 SL; -ONDA4TAB6 SL; -SUMA6INJ25 SC; +SUMA6PEN3 SC
== END ==
LOC: M RAD 13:31 → EDSTATUS 15:30
PROVIDERS: ATTEND Nurse Practitioner Family
DX: K31.89 Other diseases of stomach and duodenum (principal)

== ENCOUNTER 2023-12-16 08:52 | Day surgery (SDC) | payer OTHER ==
[~2023-12-16] VITALS: Ht 160 cm; Wt 90.4 kg
[~2023-12-16 08:52] MED LIST changes: +CLINDAMYCIN 900 MG in IV 1 EA IV ONE; -ISOVUE-370 76% 100ML VIAL As Ordered ONE
[2023-12-16] MEDS ORDERED: fentaNYL 250 MCG/5 ML INJECTION As Ordered ONE (09:09)
[2023-12-16] MEDS ORDERED: ROCURONIUM BROMIDE 50MG/5ML VIAL As Ordered ONE (09:10)
[2023-12-16] MEDS ORDERED: ONDANSETRON 4MG 2ML VIAL As Ordered ONE (09:10)
[2023-12-16] MEDS ORDERED: propofoL 200 MG/20 ML VIAL As Ordered ONE (09:10)
[2023-12-16] MEDS ORDERED: MIDAZOLAM INJ 2MG/2ML VIAL As Ordered ONE (09:10)
[2023-12-16] MEDS ORDERED: LIDOCAINE 2% 100MG/5ML SDV (FOR ANES.) As Ordered ONE (09:10)
[2023-12-16] MEDS ORDERED: KETOROLAC 60MG 2ML VIAL As Ordered ONE (09:10)
[2023-12-16] MEDS ORDERED: SUGAMMADEX SODIUM 500 MG/5 ML VIAL (BRIDION) As Ordered ONE (09:10)
[2023-12-16] MEDS ORDERED: ACETAMINOPHEN 1000MG 100ML IV BAG As Ordered ONE (09:10)
[2023-12-16] MEDS ORDERED: NS 250 ML IV SCH (09:15)
[2023-12-16] MEDS: SCOPOLAMINE 1MG TRANSDERMAL PATCH TOP ONE (10:26)
[2023-12-16] MEDS: CHLORHEXIDINE GLUCONATE 0.12 % 15ML UDC (PERIDEX ORAL RINSE) As Ordered ONE (10:59)
[2023-12-16] MEDS: LIDOCAINE 2% W/ EPINEPHRINE 1.7 ML DENTAL INJ As Ordered ONE (11:35)
[2023-12-16] MEDS ORDERED: fentaNYL 100 MCG/2 ML INJECTION IV PRN (12:10)
[2023-12-16] MEDS ORDERED: NS 1,000 ML IV SCH (12:10)
[2023-12-16] MEDS ORDERED: HYDROMORPHONE HCL 0.5 MG/ 0.5 ML SYRINGE IV PRN (12:10)
[2023-12-16] MEDS ORDERED: oxyCODONE 5MG TAB PO PRN (12:10)
[2023-12-16] MEDS: ONDANSETRON 4MG 2ML VIAL IV PRN (12:25)
[2023-12-16 13:35] VITALS: BP 130/80; TEMP 97.9; O2SAT 98
== END 2023-12-16 13:40 | disposition home or self-care (01) ==
LOC: M SDC 08:52
PROVIDERS: ATTEND Dentist
DX: K02.9 Dental caries, unspecified (principal); K21.9 Gastro-esophageal reflux disease without esophagitis; M79.7 Fibromyalgia; M32.9 Systemic lupus erythematosus, unspecified; G43.909 Migraine, unspecified, not intractable, without status migrainosus; F41.9 Anxiety disorder, unspecified; Z91.013 Allergy to seafood; Z88.0 Allergy status to penicillin; Z88.8 Allergy status to other drugs, medicaments and biological substances; F12.10 Cannabis abuse, uncomplicated; Z79.899 Other long term (current) drug therapy
CPT/HCPCS: 88300; D7140; D7210; D9223; J0131; J1100; J1885; J2250; J2405; J3010

== ENCOUNTER 2024-11-05 09:35 | Day surgery (SDC) | payer OTHER ==
[~2024-11-05] VITALS: Ht 160 cm; Wt 91.2 kg
[~2024-11-05 09:35] MED LIST changes: -CLINDAMYCIN 900 MG in IV 1 EA IV ONE; +OMEP40CA5 PO; -SUMA6PEN3 SC; +SUMA6PEN5 SC; +ZONI50CA11 PO
[2024-11-05] MEDS ORDERED: LIDOCAINE 2% 100 MG/5 ML SDV (FOR ANES.) As Ordered ONE (10:12)
[2024-11-05] MEDS: IPRATROPIUM 0.5 MG/ALBUTEROL 2.5 MG INH SOL UD 3 ML NEB STA (10:35)
[2024-11-05 11:04] VITALS: BP 139/74; O2SAT 98
== END 2024-11-05 11:15 | disposition home or self-care (01) ==
LOC: M OPP 09:35
PROVIDERS: ATTEND Internal Medicine Gastroenterology
DX: K31.7 Polyp of stomach and duodenum (principal); Z88.0 Allergy status to penicillin; Z88.5 Allergy status to narcotic agent; Z88.8 Allergy status to other drugs, medicaments and biological substances; Z91.013 Allergy to seafood; Z79.899 Other long term (current) drug therapy